=== PATIENT | male | born 1995 | race African-American/Black ===

== ENCOUNTER 2016-04-28 10:00 | Emergency (ER) | payer OTHER ==
[~2016-04-28 10:00] MED LIST: AUGMENTIN875 MG PO; NORCO 5-325 TA1 EAC1 PO
== END 2016-04-28 12:10 | disposition home or self-care (01) ==
LOC: FER 10:00
DX: S96.811A Strain of other specified muscles and tendons at ankle and foot level, right foot, initial encounter (principal); F17.210 Nicotine dependence, cigarettes, uncomplicated; X50.1XXA Overexertion from prolonged static or awkward postures, initial encounter; Y93.67 Activity, basketball; Y92.219 Unspecified school as the place of occurrence of the external cause
CPT/HCPCS: 73610; 73630; 99283

== ENCOUNTER 2016-07-11 00:04 | Emergency (ER) | payer OTHER | END 2016-07-11 03:58 | disposition home or self-care (01) | LOC: FER 00:04 | DX: S16.1XXA Strain of muscle, fascia and tendon at neck level, initial encounter (principal); S39.012A Strain of muscle, fascia and tendon of lower back, initial encounter; F17.210 Nicotine dependence, cigarettes, uncomplicated; V49.50XA Passenger injured in collision with unspecified motor vehicles in traffic accident, initial encounter; Y92.410 Unspecified street and highway as the place of occurrence of the external cause | CPT/HCPCS: 72110; 72125 ==

== ENCOUNTER 2020-04-20 22:12 | Emergency (ER) | payer OTHER ==
[~2020-04-20 22:12] MED LIST changes: +FIORICET1 EACH PO; +FLEXERIL10 MG PO; +IBUPROFEN800 MG PO; +KEFLEX500 MG PO; +MEDROL 4MG DOSEP4 MG PO; +PROMETHEGA12.5 MG/SU PR; +ZOFRAN8 MG PO
[2020-04-21 00:24] LABS: CORONAVIRUS 2019 SARS-COV-2 NEGATIVE (NEGATIVE); INFLUENZA A NAA NEGATIVE (NEGATIVE)
[2020-04-21] MEDS ORDERED: ZPAK PO (00:52)
[2020-04-21] MEDS ORDERED: MEDROL 4MG DOSEP4 MG PO (00:52)
[2020-04-21] MEDS ORDERED: IBUPROFEN800 MG PO (00:52)
[2020-04-21] MEDS ORDERED: PERCOCET 5-3251 EACH PO (00:52)
== END 2020-04-21 01:17 | disposition home or self-care (01) ==
LOC: FER 22:12
PROVIDERS: Emergency Medicine Emergency Medical Services
DX: J06.9 Acute upper respiratory infection, unspecified (principal); F17.210 Nicotine dependence, cigarettes, uncomplicated; Z20.822 Contact with and (suspected) exposure to COVID-19
CPT/HCPCS: 71046; 87880; J1885; U0002

== ENCOUNTER 2021-02-09 19:44 | Emergency (ER) | payer SELFPAY ==
[~2021-02-09 19:44] MED LIST changes: +PERCOCET 5-3251 EACH PO; +ZPAK PO
[2021-02-09 20:58] LABS: CORONAVIRUS 2019 SARS-COV-2 POSITIVE (NEGATIVE); INFLUENZA A NAA NEGATIVE (NEGATIVE)
[2021-02-09 23:00] LABS: BASOPHIL 0.5 % (0-2); EOSINOPHIL 0.1 % (0-5); HCT 45.5 % (42.0-52.0); HGB 15.5 g/dl (13.2-18.0); LYMPHOCYTE 2.2 % (15-48); MCHC 34.1 g/dL (32.0-36.0); MCV 85.2 fL (78.0-100.0); MONOCYTE 9.3 % (0-12); NEUTROPHIL 87.4 % (41-80); NRBC 0; PLT 202 K/uL (150-400); RBC 5.34 M/uL (4.70-6.00); RDW 14.2 % (11.5-14.0); WBC 12.7 K/uL (4.0-10.5)
[2021-02-09 23:27] LABS: CREATININE 0.89 mg/dL (0.67-1.17); POTASSIUM 3.5 mmol/L (3.5-5.1)
[2021-02-09] MEDS ORDERED: IBUPROFEN800 MG PO (23:54)
== END 2021-02-10 00:06 | disposition home or self-care (01) ==
LOC: FER 19:44
PROVIDERS: Internal Medicine
DX: U07.1 COVID-19 (principal)
CPT/HCPCS: 36415; 80048; 84145; 85025; U0002

== ENCOUNTER 2021-04-30 09:23 | Emergency (ER) | payer SELFPAY ==
[2021-04-30] MEDS ORDERED: ONDANSETRON ODT4 MG PO (09:59)
== END 2021-04-30 10:22 | disposition home or self-care (01) ==
LOC: FER 09:23
DX: A08.4 Viral intestinal infection, unspecified (principal); F17.210 Nicotine dependence, cigarettes, uncomplicated
CPT/HCPCS: J2405

== ENCOUNTER 2021-06-25 10:43 | Emergency (ER) | payer OTHER ==
[~2021-06-25 10:43] MED LIST changes: +ONDANSETRON ODT4 MG PO
[2021-06-25] MEDS ORDERED: CEPHALEXIN500 M1 PO (15:16)
== END 2021-06-25 15:39 | disposition home or self-care (01) ==
LOC: FER 10:43
DX: S80.211A Abrasion, right knee, initial encounter (principal); N62 Hypertrophy of breast; F17.210 Nicotine dependence, cigarettes, uncomplicated; Z23 Encounter for immunization; Z28.310 Unvaccinated for COVID-19; W01.0XXA Fall on same level from slipping, tripping and stumbling without subsequent striking against object, initial encounter; Y93.64 Activity, baseball; Y92.830 Public park as the place of occurrence of the external cause
CPT/HCPCS: 73560; 76642-LT; 90471; 90715